=== PATIENT | male | born 1990 | race Caucasian/White ===

== ENCOUNTER 2018-11-07 01:31 | Emergency (ER) | payer OTHER ==
[2018-11-07] MEDS ORDERED: Fluorescein Opthalmic Strip ONE (01:48)
[2018-11-07] MEDS ORDERED: Proparacaine 0.5% Opth 15 ML BOT ONE (01:50)
== END 2018-11-07 02:07 | disposition home or self-care (01) ==
LOC: SCSER 01:31
DX: H05.222 Edema of left orbit (principal); F98.8 Other specified behavioral and emotional disorders with onset usually occurring in childhood and adolescence; Z79.899 Other long term (current) drug therapy
CPT/HCPCS: 99283